=== PATIENT | female | born 1985 | race Caucasian/White ===

== ENCOUNTER → 2020-06-08 15:46 | Outpatient (CLI) | payer OTHER, SELFPAY ==
--- NOTE | 2020-06-08 | DI.MRI.S_ITS ---
PROCEDURE: MR KNEE RT WO CON INDICATIONS: Prepatellar bursitis, right knee TECHNIQUE: Noncontrast sagittal PD fast spin echo and T2 fast spin echo with fat saturation, sagittal 3-D FLASH with fat saturation; coronal T1 spin echo and PD fast spin echo with fat saturation, and axial PD fast spin echo with fat saturation through the knee. COMPARISON: None. FINDINGS: Image quality: Excellent. Menisci: There is horizontal tear of the anterior horn and posterior horn of the medial meniscus. An oblique tear is seen in the body of the medial meniscus. The lateral meniscus demonstrates normal morphology and internal signal. The meniscal root ligaments appear intact. Cruciate ligaments: The anterior and posterior cruciate ligaments appear intact. Medial structures: The medial collateral ligament appears intact. The semimembranosus tendon insertions and meniscocapsular junction appear intact. Visualized portions of the pes anserinus tendons appear normal. No abnormal bursal fluid. Lateral structures: The lateral collateral ligament and the biceps femoris tendon appear intact. The popliteus tendon appears normal. Iliotibial band appears normal. Anterior structures: The quadriceps and patellar tendons appear intact. Patellar alignment is normal. No femoral trochlear dysplasia or ventral trochlear prominence. No edema in the infrapatellar fat pad. Bones and cartilage: No bone marrow contusions or fractures. Mild cartilage thinning of the medial -femorotibial compartment with mild subchondral sclerosis of the medial tibial plateau. Joint space: There is small knee joint effusion. Small Cabrera's cyst. Normal appearing synovial plicae are incidentally noted. IMPRESSION: 1. Tear of the medial meniscus involving the anterior horn, body and posterior horn. 2. 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 3. Small knee joint effusion. 4. Small Cabrera's cyst. Dictated by: Dev Leon M.D. on 06/09/2020 at 9:23 Approved by: Dev Leon M.D. on 06/09/2020 at 11:03
== END ==
PROVIDERS: PCP Physician Assistant Medical; Referring Provider Family Medicine; Visit Provider Family Medicine
DX: M70.41 Prepatellar bursitis, right knee (principal); S83.241A Other tear of medial meniscus, current injury, right knee, initial encounter; M94.261 Chondromalacia, right knee; M25.461 Effusion, right knee
CPT/HCPCS: 73721